=== PATIENT | female | born 1965 | race Caucasian/White ===

== ENCOUNTER → 2017-01-12 | Outpatient (CLI) | payer BC, OTHER ==
[~2017-01-12] MED LIST: ALLEGRA180 MG PO; CALCIUM 500 +1 EAC2 PO; CLEOCIN150 MG PO; DYMISTA NASAL S23 GM; FIBER DIET1 TA1 PO; FISH OIL300 MG PO; FLONASE 0.05% N16 G1; MAGNESIUM500 MG PO; MULTI-DAY1 TAB PO; NICOTINE P1 PATCH .3; NILSTAT PO; NUVIGIL50 MG PO; OMEPRAZOLE40 M1 PO; OMEPRAZOLE40 MG PO; VIT C PO; VITAL-D RX TABL1 TAB PO; XOPENEX HFA15 GM NEB
--- NOTE | ~2017-01-12 | MY11 ---
[facility] A Service of [facility] RADIOLOGY TEXT RESULTS PATIENT: MELVINA ROB LOCATION: [facility] : 63 UNIT #: [id number] AGE: [address]: Daniel Perkins MD SEX: F ORDER DR: [id number] [facility] [address] [place], [place] [address] [id number] O MR#: [id number] Acc #: [id number] NAME: MELVINA ROB : 1965 SEX: F STUDY DATE/TIME: 01/12/2017 10:25 UNIT: [facility] ROOM: STUDY DESCRIPTION: MY Mammogram Screening Dig Jaime Attending Physician: Daniel Perkins M.D. Referring Physician: Daniel Perkins M.D. Ordering Physician: Daniel Perkins M.D. Primary Care Physician: Daniel Perkins M.D. MEDICAL IMAGING REPORT This report is preliminary unless electronic signature is present EXAM Bilateral digital screening mammogram with CAD. DATE OF EXAM 01/12/2017 COMPARISON October 25, 2015, October 16, 2014, July 11, 2012, June 30, 2010, May 27, 2009, June 24, 2010. INDICATIONS Breast cancer screening. 51-year asymptomatic female. No personal or family history of breast cancer. FINDINGS In the central posterior third of the left breast there is suggestion of a developing focal asymmetry measuring up to approximately a centimeter. In the posterior third of the right breast localizing to the 8 o'clock position, there appears to be a developing mass measuring up to 8 mm. IMPRESSION 1. Developing left breast focal asymmetry. Further evaluation with spot compression CC, and spot compression MLO views is recommended. 2. Suggestion of a developing right breast mass. Further evaluation with spot compression CC, and spot compression MLO views is recommended. 3. This may be followed by bilateral breast ultrasound. Patients over the age of 40 are entered into a reminder system with target due date for the next mammogram. A result letter will also be sent to the patient. BIRADS: 0 Incomplete; need additional imaging evaluation and/or prior [facility] A Service of [facility] RADIOLOGY TEXT RESULTS PATIENT: MELVINA ROB LOCATION: [facility] : 63 UNIT #: [id number] AGE: [address]: Daniel Perkins MD SEX: F ORDER DR: mammograms for comparison. Dictated by... Nolberto Schmidt M.D. THIS IS AN ELECTRONICALLY VERIFIED REPORT Nolberto Schmidt M.D. at 01/15/2017 9:37 AM KAYLA/areli TD: 01/12/2017 22:31 JOB #: [id number] MEDICAL IMAGING REPORT COPY
== END | disposition home or self-care (01) ==
LOC: CWCC 10:01
DX: Z12.31 Encounter for screening mammogram for malignant neoplasm of breast (principal); N64.89 Other specified disorders of breast; R92.8 Other abnormal and inconclusive findings on diagnostic imaging of breast
CPT/HCPCS: G0202

== ENCOUNTER → 2017-01-23 | Day surgery (SDC) | payer BC, OTHER ==
--- NOTE | ~2017-01-23 | OR ---
Unit #: [id number] #: [id number] Patient: MELVINA ROB [id number] [address] [place], [place] [address] [id number] O MR#: [id number] NAME: MELVINA ROB ROOM: Date of Procedure: 01/23/2017 Admission Date: 01/23/2017 Surgeon: Roger Rivas Jr., M.D. : 1965 Attending Physician: Roger Rivas Jr., M.D. Primary Care Physician: Daniel Perkins M.D. OPERATIVE REPORT INDICATIONS FOR PROCEDURE The patient is a 51-year-old white female, who has been having midepigastric abdominal pain with chronic reflux. This has not been helped with conservative treatment and it was felt she needed upper endoscopy to rule out significant esophagitis versus ulcer disease. She is brought in this time for this procedure. She denies any significant dysphagia. PREOPERATIVE DIAGNOSES Possible esophagitis, possible peptic ulcer disease. POSTOPERATIVE DIAGNOSES 1+ ulcerative distal esophagitis with mild gastritis. ANESTHESIA MAC anesthesia. PROCEDURE PERFORMED Flexible fiberoptic esophagogastroduodenoscopy with antral biopsy for Helicobacter pylori. DESCRIPTION OF PROCEDURE The patient was positioned in Escobar position with left side down. After being given MAC anesthesia, Olympus XQ scope was passed through the proximal esophagus. The entire esophagus was examined. There was no evidence of any stenosis, but there was 1+ ulcerative distal esophagitis. The scope was advanced through the GE junction, the cardia, and down the fundic and antral region of the stomach, retroflexed back up to the area of the cardia. There was no evidence of any hiatal hernia present, but the stomach appeared to be somewhat elongated and enlarged. The stomach was distended well without evidence of rigidity. There was no evidence of any gastric ulcer disease. There was some diffuse mild gastritis. A biopsy was taken from the antrum for H. pylori without significant bleeding. The scope was advanced through the pylorus and the duodenal bulb and down to the second portion of the duodenum. The entire duodenal portion examination was within normal limits. The scope was slowly removed. The patient tolerated the procedure well and discharged in satisfactory condition. Dictated by... Roger Rivas Jr., M.D. Unit #: [id number] #: [id number] Patient: MELVINA ROB LYNSEY/jackson TD: 01/24/2017 07:40 JOB #: [id number] OPERATIVE REPORT Page 1 of 1 X Roger Rivas MD PROCEDURE OPERATIVE NOTE
== END | disposition home or self-care (01) ==
LOC: COPS 11:14
PROVIDERS: Surgery
PROC: 0DB78ZX Excision of Stomach, Pylorus, Via Natural or Artificial Opening Endoscopic, Diagnostic (ICD-10-PCS; principal; 2017-01-23 13:00)
DX: K22.10 Ulcer of esophagus without bleeding (principal); K29.70 Gastritis, unspecified, without bleeding; K21.0 Gastro-esophageal reflux disease with esophagitis; J30.9 Allergic rhinitis, unspecified; F17.200 Nicotine dependence, unspecified, uncomplicated; Z79.899 Other long term (current) drug therapy; Z87.09 Personal history of other diseases of the respiratory system; Z86.010 Personal history of colon polyps; Z83.3 Family history of diabetes mellitus; Z81.1 Family history of alcohol abuse and dependence; Z82.5 Family history of asthma and other chronic lower respiratory diseases; Z82.62 Family history of osteoporosis; Z80.9 Family history of malignant neoplasm, unspecified; Z91.040 Latex allergy status; Z88.2 Allergy status to sulfonamides; Z88.8 Allergy status to other drugs, medicaments and biological substances; Z88.5 Allergy status to narcotic agent
CPT/HCPCS: 87077

== ENCOUNTER → 2017-02-05 | Outpatient (CLI) | payer BC, OTHER ==
--- NOTE | ~2017-02-05 | US17 ---
[facility] A Service of [facility] RADIOLOGY TEXT RESULTS PATIENT: MELVINA ROB LOCATION: [facility] : 63 UNIT #: [id number] AGE: [address]: Daniel Perkins MD SEX: F ORDER DR: [id number] [facility] [address] [place], [place] [address] [id number] O MR#: [id number] Acc #: [id number] NAME: MELVINA ROB : 1965 SEX: F STUDY DATE/TIME: 02/05/2017 10:04 UNIT: [facility] ROOM: STUDY DESCRIPTION: US Breast Bilateral Attending Physician: Daniel Perkins M.D. Referring Physician: Daniel Perkins M.D. Ordering Physician: Daniel Perkins M.D. Primary Care Physician: Nathanael Campoverde M.D. MEDICAL IMAGING REPORT This report is preliminary unless electronic signature is present EXAM Bilateral breast ultrasound 02/05/2017 HISTORY 8 mm nodule at 8 o'clock position right breast persisted on spot compression. There is also the nodule in the central left breast which persisted on spot compression. Ultrasound was recommended for further evaluation. FINDINGS Ultrasound at the 8 o'clock position of the right breast revealed a 4 mm simple cyst corresponding to the mammographic abnormality. No abnormality was seen within the left breast near the chest wall centrally to correspond to the nodular asymmetry. Some incidental dilated ducts were noted in the subareolar left breast. Correlation with left breast tomosynthesis is recommended for further evaluation of the asymmetry which persisted in the mediolateral-oblique projection but effaced in the craniocaudal projection. IMPRESSION 1. The nodule within the 8 o'clock position of the right breast corresponds to a 4 mm simple cyst by ultrasound. 2. No sonographic abnormality was seen in the central left breast to correspond to the mammographic abnormality which persisted on spot compression in the mediolateral-oblique projection but did not efface in the craniocaudal projection. Correlation with left breast tomosynthesis is recommended for characterization of this finding. Findings and recommendations discussed with the patient at the time of the examination. BIRADS: 0 Needs additional imaging evaluate and/or prior mammograms for comparison. [facility] A Service of [facility] RADIOLOGY TEXT RESULTS PATIENT: MELVINA ROB LOCATION: [facility] : 63 UNIT #: [id number] AGE: [address]: Daniel Perkins MD SEX: F ORDER DR: Dictated by... Héctor Johnson M.D. THIS IS AN ELECTRONICALLY VERIFIED REPORT Héctor Johnson M.D. at 02/07/2017 8:30 AM KRT/to TD: 02/05/2017 11:25 JOB #: [id number] MEDICAL IMAGING REPORT Page 1 of 1 COPY
--- NOTE | ~2017-02-05 | MY6 ---
[facility] A Service of [facility] RADIOLOGY TEXT RESULTS PATIENT: MELVINA ROB LOCATION: [facility] : 63 UNIT #: [id number] AGE: [address]: Daniel Perkins MD SEX: F ORDER DR: [id number] [place] [address] [place], [place] [address] [id number] O MR#: [id number] Acc #: [id number] NAME: MELVINA ROB : 1965 SEX: F STUDY DATE/TIME: 02/05/2017 9:38 UNIT: [facility] ROOM: STUDY DESCRIPTION: MY Mammogram Dx Dig Jaime Attending Physician: Daniel Perkins M.D. Referring Physician: Daniel Perkins M.D. Ordering Physician: Daniel Perkins M.D. Primary Care Physician: Nathanael Campoverde M.D. MEDICAL IMAGING REPORT This report is preliminary unless electronic signature is present EXAM Bilateral digital diagnostic mammogram with CAD device, 02/05/2017 HISTORY Screening mammogram obtained 01/12/2017 demonstrated a 1.0 cm nodular asymmetry in the central left breast near the chest wall. There was also an 8.0 mm nodule at the 8 o'clock position of the right breast. Bilateral spot compression was recommended for further evaluation. FINDINGS Digital mediolateral views of each breast were obtained as well as an exaggerated craniocaudal lateral view of the left breast. The 8.0 mm nodule at the 8 o'clock position of the right breast persists following spot compression and appears fairly well circumscribed. Ultrasound of the right breast obtained today revealed a 4.0 mm simple cyst at the 8 o'clock position corresponding to the mammographic abnormality. The nodule in the left breast also persists on spot compression only in the mediolateral-oblique projection and appears to efface in the craniocaudal projection. No corresponding ultrasound abnormality was seen within the central left breast near the chest wall but there were some incidental dilated ducts in the subareolar left breast. Correlation with tomosynthesis of the left breast is recommended for further evaluation of the left breast asymmetry. Findings and recommendations were discussed with the patient at the time of the examination. The films have been reviewed by an FDA-approved CAD device. IMPRESSION 8.0 mm nodule 8 o'clock position of the right breast corresponds to a simple cyst. The left breast nodule persisted on spot compression in the mediolateral-oblique projection but effaced on spot compression in the craniocaudal projection and there is no ultrasound abnormality within the left breast to correspond to the asymmetry. Correlation with left breast tomosynthesis is recommended for further evaluation of the asymmetry. [facility] A Service of [facility] RADIOLOGY TEXT RESULTS PATIENT: MELVINA ROB LOCATION: [facility] : 63 UNIT #: [id number] AGE: [address]: Daniel Perkins MD SEX: F ORDER DR: Findings and recommendations discussed with the patient at the time of the examination. Patients over the age of 40 are entered into a reminder system with target due date for the next mammogram. A result letter will also be sent to the patient. BIRADS 0 Incomplete: Need Additional Imaging Evaluation and/or Prior Mammograms for Comparison Dictated by... Héctor Johnson M.D. THIS IS AN ELECTRONICALLY VERIFIED REPORT Héctor Johnson M.D. at 02/06/2017 7:45 AM NAWAF/khadijah TD: 02/05/2017 11:42 JOB #: [id number] MEDICAL IMAGING REPORT Page 1 of 1 COPY
== END | disposition home or self-care (01) ==
LOC: CMAM 08:46
DX: R92.8 Other abnormal and inconclusive findings on diagnostic imaging of breast (principal); N63 Unspecified lump in breast; N60.01 Solitary cyst of right breast
CPT/HCPCS: 76641; G0204